=== PATIENT | female | born 1940 | race Caucasian/White ===

== ENCOUNTER → 2016-04-26 | Outpatient (CLI) | payer MEDICARE ==
[~2016-04-26] MED LIST: ARICEPT5 M1 PO; AUGMENTIN 875 M1 TA1 PO; ECOTRIN81 M1 PO; Ecotrin325 MG PO; FISH OIL 500MG500 MG PO; LIPITOR40 MG PO; METOPROLOL SUCC25 M2 PO; MOTRIN600 MG PO; PLAVIX75 MG PO; SKELAXIN800 MG PO; TOPROL XL25 MG PO; ULTRAM50 MG PO; Zofran4 MG PO; [UNRECOGNIZED DRUG - REMARK] PO
== END | disposition home or self-care (01) ==
LOC: CARD 12:50
DX: I34.0 Nonrheumatic mitral (valve) insufficiency (principal); I07.1 Rheumatic tricuspid insufficiency; R07.2 Precordial pain; R53.83 Other fatigue

== ENCOUNTER → 2016-07-12 | Outpatient (CLI) | payer MEDICARE | END | disposition home or self-care (01) | LOC: RAD 14:32 | DX: J98.4 Other disorders of lung (principal); R06.02 Shortness of breath; R05 Cough; R06.2 Wheezing; R09.89 Other specified symptoms and signs involving the circulatory and respiratory systems; Z87.891 Personal history of nicotine dependence ==

== ENCOUNTER → 2016-10-05 | Outpatient (CLI) | payer MEDICARE | LOC: US 01:46 | DX: I65.23 Occlusion and stenosis of bilateral carotid arteries (principal); I25.10 Atherosclerotic heart disease of native coronary artery without angina pectoris ==

== ENCOUNTER → 2016-11-22 | Outpatient (CLI) | payer MEDICARE ==
[2016-11-22 11:54] LABS: BASO # 0.1 10*3/uL (0.0-0.1); EOS # 0.2 10*3/uL (0.0-0.4); HEMATOCRIT 39.3 % (37.0-47.0); LYMPH # 1.8 10*3/uL (1.3-4.4); LYMPH % 31.1 % (27.0-41.0); MEAN CELL VOLUME 93.3 fl (81.0-99.0); MEAN CORPUSCULAR HGB 30.9 pg (27.0-31.0); MEAN CORPUSCULAR HGB CONC 33.1 g/dl (33.0-37.0); MEAN PLATELET VOLUME 9.8 fl (9.6-12.3); MONO # 0.5 10*3/uL (0.1-1.0); MONO % 8.8 % (3.0-9.0); NEUT # 3.3 10*3/uL (2.3-7.9); NEUT % 55.8 % (47.0-73.0); PLATELET COUNT AUTOMATED 188 10*3/uL (130-400); RED BLOOD COUNT 4.21 10*6/uL (4.10-5.10); RED CELL DISTRI WIDTH 12.9 % (0-14.5); WHITE BLOOD COUNT 5.9 10*3/uL (4.8-10.8)
[2016-11-22 12:26] LABS: ALBUMIN 3.7 gm/dl (3.1-4.5); ALKALINE PHOSPHATASE 83 U/L (45-117); BILIRUBIN, TOTAL 0.5 mg/dl (0.2-1.0); BUN 16 mg/dl (7-24); CARBON DIOXIDE 28 mmol/L (21-32); CHLORIDE 107 mmol/L (98-107); EST GLOM FILT AFRICAN AMERICAN > 60 ml/min; GLUCOSE 80 mg/dL (65-99); POTASSIUM 4.3 mmol/L (3.5-5.1); SGOT/AST 19 IU/L (3-35); SGPT/ALT 22 U/L (12-78); SODIUM 140 mmol/L (136-145); TOTAL PROTEIN 6.5 gm/dL (6.4-8.2)
== END | disposition home or self-care (01) ==
LOC: LAB 10:51 → CT 11:00
PROVIDERS: Internal Medicine
DX: R55 Syncope and collapse (principal); R41.3 Other amnesia

== ENCOUNTER 2017-01-01 15:53 | Emergency (ER) | payer MEDICARE ==
[~2017-01-01] VITALS: Wt 55.8 kg
[2017-01-01 15:58] VITALS: BP 147/86
[2017-01-01] MEDS ORDERED: AUGMENTIN 875875 MG PO (16:31)
== END 2017-01-01 16:29 | disposition home or self-care (01) ==
LOC: ED 15:53
DX: S61.451A Open bite of right hand, initial encounter (principal); W55.01XA Bitten by cat, initial encounter; Z79.899 Other long term (current) drug therapy; Z79.82 Long term (current) use of aspirin; Z90.49 Acquired absence of other specified parts of digestive tract; Z90.710 Acquired absence of both cervix and uterus; Z88.2 Allergy status to sulfonamides; Z88.5 Allergy status to narcotic agent

== ENCOUNTER → 2017-07-11 | Outpatient (CLI) | payer MEDICARE ==
[~2017-07-11] MED LIST changes: +AUGMENTIN 875875 MG PO
== END | disposition home or self-care (01) ==
LOC: US 10:32
DX: I65.23 Occlusion and stenosis of bilateral carotid arteries (principal)

== ENCOUNTER 2019-04-30 11:43 | Inpatient (IN) | payer MEDICARE ==
[~2019-04-30] VITALS: Ht 154.9 cm; Wt 56.5 kg
--- NOTE | 2019-04-30 12:00 | NUR ---
DR NAIK MADE AWARE OF DIZZINESS THAT STARTED AFTER SHE AWOKE THIS MORNING STATES THAT SHE WAS LAYING IN BED WHEN THE DIZZINESS STARTED. PATIENT STATES THAT SHE FELT NAUSEATED WELL.
--- NOTE | 2019-04-30 12:05 | NUR ---
UPON ENTERING PT'S ROOM PT STATES "THE ROOM IS SPINNING SO FAST, YOU ARE SPINNING" RAPID UNCONTROLLED EYE MOVEMENT NOTED AT THIS TIME. DR NAIK NOTIFIED. BRAIN ATTACK CODE CALLED.
[2019-04-30 12:14] LABS: BASO # 0.1 10*3/uL (0.0-0.1); BASO % 1.3 % (0.0-1.0); EOS # 0.1 10*3/uL (0.0-0.4); HEMOGLOBIN 13.5 g/dl (12.0-16.0); LYMPH # 1.5 10*3/uL (1.3-4.4); LYMPH % 30.9 % (27.0-41.0); MEAN CELL VOLUME 93.8 fl (81.0-99.0); MEAN CORPUSCULAR HGB 30.9 pg (27.0-31.0); MEAN CORPUSCULAR HGB CONC 32.9 g/dl (33.0-37.0); MEAN PLATELET VOLUME 10.1 fl (9.6-12.3); MONO # 0.3 10*3/uL (0.1-1.0); MONO % 6.8 % (3.0-9.0); NEUT # 2.7 10*3/uL (2.3-7.9); NEUT % 57.8 % (47.0-73.0); PLATELET COUNT AUTOMATED 193 10*3/uL (130-400); RED BLOOD COUNT 4.37 10*6/uL (4.10-5.10); RED CELL DISTRI WIDTH 12.7 % (0-14.5); WHITE BLOOD COUNT 4.7 10*3/uL (4.8-10.8)
[2019-04-30 12:18] VITALS: BP 115/98
[2019-04-30 12:25] LABS: ACT PARTIAL THROMBO TIME 25.8 SECONDS (20.0-32.1)
[2019-04-30 12:29] LABS: LIPASE 165 U/L (73-393)
[2019-04-30 12:30] LABS: ALBUMIN 3.6 gm/dl (3.1-4.5); ALKALINE PHOSPHATASE 88 U/L (45-117); BUN 16 mg/dl (7-24); CHLORIDE 109 mmol/L (98-107); CREATININE 0.96 mg/dL (0.55-1.02); POTASSIUM 3.7 mmol/L (3.5-5.1); SGPT/ALT 18 U/L (12-78); SODIUM 140 mmol/L (136-145); TOTAL PROTEIN 6.7 gm/dL (6.4-8.2)
[2019-04-30 12:38] LABS: SGOT/AST 17 IU/L (3-35); TROPONIN I < 0.015 ng/ml (<0.045)
[2019-04-30 13:00] VITALS: BP 157/63
[2019-04-30 14:00] VITALS: BP 130/67
[2019-04-30 15:00] VITALS: BP 138/60
[2019-04-30 16:00] VITALS: BP 129/63
--- NOTE | 2019-04-30 17:08 | NUR ---
A 79, admitted to , under the services of JANNET Rosado DO with a diagnosis of N/V. Chief complaint is N/V. [place] Monitor applied. Initial assessment completed. Vital signs taken and recorded. JANNET ROSADO DO notified of admission to the unit. Orders received. See assessment for past medical history, medications and allergies. Patient and/or family oriented to unit. [facility] visitation policy reviewed. Clothing/patient valuable form completed. DWIGHT FORBES
[2019-04-30] MEDS ORDERED: ASPIRIN81 M1 PO (17:23)
[2019-04-30] MEDS ORDERED: CITALOPRAM20 MG PO (17:23)
[2019-04-30] MEDS ORDERED: VITAMIN B121000 MC1 PO (17:24)
[2019-04-30] MEDS ORDERED: VITAMIN D32000 UNI1 PO (17:24)
[2019-04-30] MEDS ORDERED: METOPROLOL SUCC25 M2 PO (17:26)
--- NOTE | 2019-04-30 19:23 | NUR ---
dr latham notified of critical troponin
--- NOTE | 2019-04-30 19:36 | NUR ---
'S ANSWERING SERVICE CALLED REGARDING CONSULT. INFORMATION, INCLUDING CALL BACK NUMBER, LEFT WITH ANSWERING SERVICE.
[2019-04-30 20:00] VITALS: BP 179/60
--- NOTE | 2019-04-30 21:11 | NUR ---
NOTIFIED OF TROPONIN 0.063, UP FROM 0.057. NO NEW ORDERS RECEIVED.
--- NOTE | 2019-04-30 22:39 | NUR ---
PATIENT UP TO [facility] PER AIDE. MISSED HAT. UNABLE TO SEND URINE SAMPLE. WILL ATTEMPT AT LATER POINT.
--- NOTE | 2019-04-30 23:17 | NUR ---
'S ANSWERING SERVICE CALLED REGARDING CONSULT. INFORMATION, INCLUDING CALL BACK NUMBER, LEFT WITH ANSWERING SERVICE.
[2019-05-01] VITALS: BP 122/44
--- NOTE | 2019-05-01 04:57 | NUR ---
PER LAB 0250 TROPONIN JUST POPPED UP FOR THEM TO DRAW. RN INSTRUCTED LAB TO GET TROPONIN WITH AM LAB DRAWS.
[2019-05-01 06:04] LABS: BUN 14 mg/dl (7-24); CHLORIDE 114 mmol/L (98-107); CREATININE 0.87 mg/dL (0.55-1.02); PHOSPHOROUS 3.3 mg/dL (2.5-4.9); POTASSIUM 3.5 mmol/L (3.5-5.1); SODIUM 142 mmol/L (136-145)
[2019-05-01 06:06] LABS: BASO # 0.1 10*3/uL (0.0-0.1); EOS # 0.2 10*3/uL (0.0-0.4); EOS % 3.5 % (1.0-4.0); HEMATOCRIT 35.7 % (37.0-47.0); HEMOGLOBIN 11.5 g/dl (12.0-16.0); LYMPH # 1.9 10*3/uL (1.3-4.4); MEAN CELL VOLUME 94.7 fl (81.0-99.0); MEAN CORPUSCULAR HGB 30.5 pg (27.0-31.0); MEAN CORPUSCULAR HGB CONC 32.2 g/dl (33.0-37.0); MEAN PLATELET VOLUME 10.3 fl (9.6-12.3); MONO # 0.4 10*3/uL (0.1-1.0); MONO % 7.6 % (3.0-9.0); NEUT # 2.6 10*3/uL (2.3-7.9); NEUT % 50.7 % (47.0-73.0); PLATELET COUNT AUTOMATED 162 10*3/uL (130-400); RED BLOOD COUNT 3.77 10*6/uL (4.10-5.10); RED CELL DISTRI WIDTH 12.7 % (0-14.5); WHITE BLOOD COUNT 5.1 10*3/uL (4.8-10.8)
[2019-05-01 08:00] VITALS: BP 130/46
--- NOTE | 2019-05-01 09:00 | NUR ---
Eligibility Manager in to talk to patient. Patient states lives at home with alone. There are no steps in the home. Physician: barron june Pharmacy: [facility] Home health services: none Patient's level of ADLs: INDEPENDENT Patient has working utilities: all working DME: none Follow-up physician's appointment after d/c: will be made by hospitalist nurse director upon discharge Does patient want to access PORTAL?: no Discharge plan discussed with patient, she lives at home alone is independent in adls and ambualation she states she will return home when medically stable and denies any home needs, case management will follow. SAMANTHA OWEN
--- NOTE | 2019-05-01 10:26 | NUR ---
INFORMED SIGNED CONSENT OBTAINED FOR LEXISCAN STRESS TEST WITH DR LEW. RESTING EKG SINUS BRADYCARDIA WITH PVC HR 47, T WAVE INVERSION AVL, V1-V3. PT COMPLETED ONE MINUTE OF A LEXISCAN PROTOCOL WITH PT RECEIVING LEXISCAN 0.4MG IV OVER 10 SECONDS. PT C/O NAUSEA WITH INJECTION. NO ARRYTHMIAS OR ST CHANGES NOTED. LAST RECOVERY HR OF 82 BP 134/80. PT IN STABLE CONDITION, AWAITING NUCLEAR IMAGES.
[2019-05-01 16:00] VITALS: BP 139/52
[2019-05-01 16:25] LABS: CLARITY CLEAR (CLEAR); COLOR YELLOW (YELLOW)
[2019-05-01 16:26] LABS: BILIRUBIN NEGATIVE (NEGATIVE); BLOOD 2+ (NEGATIVE); GLUCOSE NEGATIVE (NEGATIVE); KETONE NEGATIVE (NEGATIVE); LEUKO ESTERASE NEGATIVE (NEGATIVE); NITRITE NEGATIVE (NEGATIVE); UROBILINOGEN 0.2 E.U./dl (0.2-1.0)
[2019-05-01 16:27] LABS: BACTERIA 1+; WBC 0-2 wbc/hpf (0-5)
--- NOTE | 2019-05-01 17:48 | NUR ---
Discharge instructions reviewed with patient/family. Patient receptive and verbalizes understanding. Follow-up care arranged. Written instructions given to patient/family. SOLEDAD GASTON
--- NOTE | 2019-05-02 09:03 | NUR ---
Faxed home health referral to [facility]
--- NOTE | 2019-05-06 15:01 | NUR ---
Received call from Randi from [facility]. She is unable to admit patient as she is not home bound.
== END 2019-05-01 17:48 | disposition home or self-care (01) | DRG 641 ==
LOC: ED 11:43 → EDHOLD 14:45 → 4E 14:45
PROVIDERS: Emergency Medicine; Student in an Organized Health Care Education/Training Program; ADMIT Internal Medicine
PROC: 3E073KZ Introduction of Other Diagnostic Substance into Coronary Artery, Percutaneous Approach (ICD-10-PCS; principal; 2019-05-01)
PROC: 4A02XM4 Measurement of Cardiac Total Activity, External Approach (ICD-10-PCS; principal; 2019-05-01)
DX: E86.0 Dehydration (principal); R11.2 Nausea with vomiting, unspecified; E87.8 Other disorders of electrolyte and fluid balance, not elsewhere classified; R00.1 Bradycardia, unspecified; R73.9 Hyperglycemia, unspecified; I12.9 Hypertensive chronic kidney disease with stage 1 through stage 4 chronic kidney disease, or unspecified chronic kidney disease; N18.3 Chronic kidney disease, stage 3 (moderate); I25.10 Atherosclerotic heart disease of native coronary artery without angina pectoris; E78.5 Hyperlipidemia, unspecified; F03.90 Unspecified dementia, unspecified severity, without behavioral disturbance, psychotic disturbance, mood disturbance, and anxiety; E55.9 Vitamin D deficiency, unspecified; E53.9 Vitamin B deficiency, unspecified; Z95.1 Presence of aortocoronary bypass graft; Z90.49 Acquired absence of other specified parts of digestive tract; Z98.51 Tubal ligation status; Z87.891 Personal history of nicotine dependence; Z82.49 Family history of ischemic heart disease and other diseases of the circulatory system; Z88.2 Allergy status to sulfonamides; Z88.8 Allergy status to other drugs, medicaments and biological substances; Z79.82 Long term (current) use of aspirin; Z79.899 Other long term (current) drug therapy

== ENCOUNTER → 2019-10-22 | Outpatient (CLI) | payer MEDICARE ==
[~2019-10-22] MED LIST changes: +ASPIRIN81 M1 PO; +CITALOPRAM20 MG PO; +VITAMIN B121000 MC1 PO; +VITAMIN D32000 UNI1 PO
== END | disposition home or self-care (01) ==
LOC: LAB 12:00
DX: R19.7 Diarrhea, unspecified (principal)

== ENCOUNTER → 2019-10-23 | Outpatient (CLI) | payer MEDICARE | END | disposition home or self-care (01) | LOC: LAB 13:33 | DX: R19.7 Diarrhea, unspecified (principal) ==

== ENCOUNTER → 2019-10-25 | Outpatient (CLI) | payer MEDICARE | END | disposition home or self-care (01) | LOC: LAB 11:47 | DX: R19.7 Diarrhea, unspecified (principal) ==

== ENCOUNTER 2020-10-27 14:01 | Inpatient (IN) | payer MEDICARE ==
[~2020-10-27] VITALS: Ht 154.9 cm; Wt 55.1 kg
[2020-10-27 14:12] VITALS: BP 170/80
[2020-10-27 14:46] LABS: BASO # 0.1 10*3/uL (0.0-0.1); BASO % 0.8 % (0.0-1.0); EOS # 0.3 10*3/uL (0.0-0.4); EOS % 3.6 % (1.0-4.0); HEMATOCRIT 41.1 % (37.0-47.0); LYMPH # 1.3 10*3/uL (1.3-4.4); LYMPH % 16.7 % (27.0-41.0); MEAN CELL VOLUME 91.7 fl (81.0-99.0); MEAN CORPUSCULAR HGB 29.9 pg (27.0-31.0); MEAN CORPUSCULAR HGB CONC 32.6 g/dl (33.0-37.0); MEAN PLATELET VOLUME 9.5 fl (9.6-12.3); MONO # 0.8 10*3/uL (0.1-1.0); MONO % 10.1 % (3.0-9.0); NEUT # 5.2 10*3/uL (2.3-7.9); NEUT % 67.9 % (47.0-73.0); PLATELET COUNT AUTOMATED 194 10*3/uL (130-400); RED BLOOD COUNT 4.48 10*6/uL (4.10-5.10); RED CELL DISTRI WIDTH 13.2 % (0-14.5); WHITE BLOOD COUNT 7.6 10*3/uL (4.8-10.8)
[2020-10-27 15:02] LABS: ALBUMIN 3.4 gm/dl (3.1-4.5); ALKALINE PHOSPHATASE 96 U/L (45-117); BUN 12 mg/dl (7-24); CHLORIDE 106 mmol/L (98-107); CREATININE 0.94 mg/dL (0.55-1.02); LIPASE 211 U/L (73-393); POTASSIUM 4.1 mmol/L (3.5-5.1); SGOT/AST 12 IU/L (3-35); SGPT/ALT 17 U/L (12-78); SODIUM 136 mmol/L (136-145); TOTAL PROTEIN 6.6 gm/dL (6.4-8.2)
[2020-10-27 15:11] LABS: TROPONIN I < 0.015 ng/ml (<0.045)
[2020-10-27 15:40] VITALS: BP 162/84
[2020-10-27 16:38] VITALS: BP 158/81
[2020-10-27 19:21] LABS: BILIRUBIN Negative (Negative); BLOOD Negative (Negative); CLARITY Clear (Clear); COLOR Yellow (Yellow); GLUCOSE Negative (Negative); KETONE Negative (Negative); LEUKO ESTERASE Trace (Negative); NITRITE Negative (Negative); PH 7.5 (4.5-8.0); SPECIFIC GRAVITY <= 1.005 (1.001-1.030); UROBILINOGEN 0.2 E.U./dl (0.0-1.0)
[2020-10-27 19:37] LABS: RBC 0-2 rbc/hpf (0-2)
[2020-10-27 19:39] VITALS: BP 175/50
[2020-10-27 20:00] VITALS: BP 199/64
[2020-10-27 21:35] VITALS: BP 150/70
[2020-10-28] VITALS: BP 163/48
[2020-10-28 08:00] VITALS: BP 145/44
[2020-10-28 12:00] VITALS: BP 144/47
[2020-10-28 16:00] VITALS: BP 117/45
[2020-10-28 20:00] VITALS: BP 125/47
[2020-10-29] MEDS ORDERED: APRESOLINE25 MG PO (04:36)
[2020-10-29 08:00] VITALS: BP 139/43
== END 2020-10-29 10:05 | disposition home or self-care (01) | DRG 303 ==
LOC: ED 14:01 → 4E 16:56 → EDHOLD 16:56 → 4E 17:44
PROVIDERS: Emergency Medicine; ADMIT Internal Medicine; ATTEND Internal Medicine
DX: I99.8 Other disorder of circulatory system (principal); I38 Endocarditis, valve unspecified; I35.0 Nonrheumatic aortic (valve) stenosis; I07.1 Rheumatic tricuspid insufficiency; I34.0 Nonrheumatic mitral (valve) insufficiency; I10 Essential (primary) hypertension; G30.9 Alzheimer's disease, unspecified; R29.6 Repeated falls; R62.7 Adult failure to thrive; F02.80 Dementia in other diseases classified elsewhere, unspecified severity, without behavioral disturbance, psychotic disturbance, mood disturbance, and anxiety; I25.10 Atherosclerotic heart disease of native coronary artery without angina pectoris; Z95.1 Presence of aortocoronary bypass graft; S00.83XA Contusion of other part of head, initial encounter; W18.39XA Other fall on same level, initial encounter; Y93.89 Activity, other specified; Y92.89 Other specified places as the place of occurrence of the external cause; Y99.8 Other external cause status; Z90.49 Acquired absence of other specified parts of digestive tract; Z98.51 Tubal ligation status; Z95.5 Presence of coronary angioplasty implant and graft; Z90.710 Acquired absence of both cervix and uterus; Z68.22 Body mass index [BMI] 22.0-22.9, adult; R00.1 Bradycardia, unspecified

== ENCOUNTER 2021-03-07 10:53 | Emergency (ER) | payer MEDICARE ==
[~2021-03-07] VITALS: Wt 52.2 kg
[~2021-03-07 10:53] MED LIST changes: +APRESOLINE25 MG PO
[2021-03-07 10:54] VITALS: BP 142/73
[2021-03-07] MEDS ORDERED: HYDROCODONE-AC1 EAC1 PO (14:11)
== END 2021-03-07 14:56 | disposition home or self-care (01) ==
LOC: ED 10:53
DX: S22.41XA Multiple fractures of ribs, right side, initial encounter for closed fracture (principal); S27.321A Contusion of lung, unilateral, initial encounter; Z88.2 Allergy status to sulfonamides; Z88.8 Allergy status to other drugs, medicaments and biological substances; Z79.899 Other long term (current) drug therapy; Z79.82 Long term (current) use of aspirin; Z87.891 Personal history of nicotine dependence; W18.39XA Other fall on same level, initial encounter; Y93.89 Activity, other specified; Y92.89 Other specified places as the place of occurrence of the external cause; Y99.8 Other external cause status

== ENCOUNTER 2022-03-09 13:39 | Emergency (ER) | payer MEDICARE ==
[~2022-03-09] VITALS: Ht 152.4 cm; Wt 54.4 kg
[~2022-03-09 13:39] MED LIST changes: +CARAFATE1 GM PO; +HYDROCODONE-AC1 EAC1 PO; +MEMANTINE HCL5 MG PO; +NORVASC5 MG PO; +PROTONIX40 MG PO; +RIVASTIGMINE TAR6 M1 PO
[2022-03-09 14:05] VITALS: BP 136/78
[2022-03-09 14:47] LABS: BASO % 0.6 % (0.0-1.0); EOS # 0.1 10*3/uL (0.0-0.4); EOS % 1.2 % (1.0-4.0); HEMATOCRIT 38.8 % (37.0-47.0); LYMPH # 0.8 10*3/uL (1.3-4.4); LYMPH % 15.3 % (27.0-41.0); MEAN CELL VOLUME 88.6 fl (81.0-99.0); MEAN CORPUSCULAR HGB 30.4 pg (27.0-31.0); MEAN CORPUSCULAR HGB CONC 34.3 g/dl (33.0-37.0); MEAN PLATELET VOLUME 9.7 fl (9.6-12.3); MONO # 0.3 10*3/uL (0.1-1.0); MONO % 5.5 % (3.0-9.0); NEUT # 3.9 10*3/uL (2.3-7.9); NEUT % 77.2 % (47.0-73.0); PLATELET COUNT AUTOMATED 202 10*3/uL (130-400); RED BLOOD COUNT 4.38 10*6/uL (4.10-5.10); RED CELL DISTRI WIDTH 13.4 % (0-14.5); WHITE BLOOD COUNT 5.1 10*3/uL (4.8-10.8)
[2022-03-09 14:59] LABS: ACT PARTIAL THROMBO TIME 25.6 SECONDS (20.0-32.1)
[2022-03-09 15:02] LABS: ALKALINE PHOSPHATASE 90 U/L (46-116); BUN 11 mg/dl (9-23); CHLORIDE 104 mmol/L (98-107); POTASSIUM 3.2 mmol/L (3.4-5.1); SODIUM 138 mmol/L (136-145)
[2022-03-09 15:03] LABS: TOTAL PROTEIN 6.3 gm/dL (6.0-8.0)
[2022-03-09 15:04] LABS: SGPT/ALT < 7 U/L (10-49)
== END 2022-03-09 16:21 | disposition home or self-care (01) ==
LOC: ED 13:39
PROVIDERS: Emergency Medicine
DX: S02.2XXA Fracture of nasal bones, initial encounter for closed fracture (principal); S00.81XA Abrasion of other part of head, initial encounter; E87.6 Hypokalemia; I25.10 Atherosclerotic heart disease of native coronary artery without angina pectoris; E78.5 Hyperlipidemia, unspecified; I12.9 Hypertensive chronic kidney disease with stage 1 through stage 4 chronic kidney disease, or unspecified chronic kidney disease; N18.30 Chronic kidney disease, stage 3 unspecified; Z88.2 Allergy status to sulfonamides; Z88.8 Allergy status to other drugs, medicaments and biological substances; Z79.899 Other long term (current) drug therapy; Z98.51 Tubal ligation status; Z90.49 Acquired absence of other specified parts of digestive tract; Z87.891 Personal history of nicotine dependence; W18.39XA Other fall on same level, initial encounter; Y93.89 Activity, other specified; Y92.89 Other specified places as the place of occurrence of the external cause; Y99.8 Other external cause status

== ENCOUNTER → 2022-06-01 | Outpatient (CLI) | payer MEDICARE ==
[2022-06-01 10:15] LABS: BASO # 0.1 10*3/uL (0.0-0.1); BASO % 1.9 % (0.0-1.0); EOS # 0.2 10*3/uL (0.0-0.4); EOS % 3.5 % (1.0-4.0); HEMATOCRIT 39.5 % (37.0-47.0); LYMPH % 23.9 % (27.0-41.0); MEAN CELL VOLUME 93.4 fl (81.0-99.0); MEAN CORPUSCULAR HGB CONC 32.2 g/dl (33.0-37.0); MEAN PLATELET VOLUME 9.7 fl (9.6-12.3); MONO # 0.5 10*3/uL (0.1-1.0); MONO % 11.3 % (3.0-9.0); NEUT # 2.5 10*3/uL (2.3-7.9); NEUT % 58.9 % (47.0-73.0); PLATELET COUNT AUTOMATED 199 10*3/uL (130-400); RED BLOOD COUNT 4.23 10*6/uL (4.10-5.10); RED CELL DISTRI WIDTH 13.2 % (0-14.5); WHITE BLOOD COUNT 4.2 10*3/uL (4.8-10.8)
[2022-06-01 10:34] LABS: ALKALINE PHOSPHATASE 101 U/L (46-116); BUN 12 mg/dl (9-23); CHLORIDE 103 mmol/L (98-107); CHOLESTEROL 197 mg/dL (<200); FREE T4 1.15 ng/dl (0.89-1.76); LDL CHOLESTEROL 114 mg/dL (9-159); SGPT/ALT 13 U/L (10-49); THYROID STIM HORMONE (HS) 2.638 uIU/ml (0.550-4.780); TOTAL PROTEIN 6.3 gm/dL (6.0-8.0); TRIGLYCERIDES 100 mg/dl (<150)
[2022-06-01 10:37] LABS: VITAMIN D, 25-HYDROXY 37.8 ng/mL (30-100)
== END | disposition home or self-care (01) ==
LOC: RAD 00:58
PROVIDERS: ATTEND Internal Medicine
DX: M81.0 Age-related osteoporosis without current pathological fracture (principal); I10 Essential (primary) hypertension; E55.9 Vitamin D deficiency, unspecified; I95.9 Hypotension, unspecified; Z13.89 Encounter for screening for other disorder; Z13.820 Encounter for screening for osteoporosis; Z13.1 Encounter for screening for diabetes mellitus; Z13.6 Encounter for screening for cardiovascular disorders; Z13.0 Encounter for screening for diseases of the blood and blood-forming organs and certain disorders involving the immune mechanism; Z13.21 Encounter for screening for nutritional disorder; Z13.220 Encounter for screening for lipoid disorders; Z13.228 Encounter for screening for other metabolic disorders; Z13.9 Encounter for screening, unspecified

== ENCOUNTER 2022-11-05 22:54 | Emergency (ER) | payer MEDICARE ==
[~2022-11-05] VITALS: Ht 162.5 cm; Wt 54.9 kg
[2022-11-05 23:15] VITALS: BP 163/64
[2022-11-06] MEDS ORDERED: CEPHALEXIN500 M1 PO (00:35)
== END 2022-11-06 00:38 | disposition home or self-care (01) ==
LOC: ED 22:54
DX: L03.115 Cellulitis of right lower limb (principal); I10 Essential (primary) hypertension; I25.10 Atherosclerotic heart disease of native coronary artery without angina pectoris; E78.00 Pure hypercholesterolemia, unspecified; F03.90 Unspecified dementia, unspecified severity, without behavioral disturbance, psychotic disturbance, mood disturbance, and anxiety; Z88.2 Allergy status to sulfonamides; Z88.8 Allergy status to other drugs, medicaments and biological substances; Z90.49 Acquired absence of other specified parts of digestive tract; Z98.51 Tubal ligation status; Z98.890 Other specified postprocedural states; Z90.710 Acquired absence of both cervix and uterus; Z87.891 Personal history of nicotine dependence

== ENCOUNTER 2023-09-24 04:50 | Emergency (ER) | payer MEDICARE ==
[~2023-09-24] VITALS: Ht 154.9 cm; Wt 46.7 kg
[~2023-09-24 04:50] MED LIST changes: +CEPHALEXIN500 M1 PO
[2023-09-24 04:51] VITALS: BP 143/64
[2023-09-24] MEDS ORDERED: ACETAMINOPHEN 325 MG TAB PO ONE (05:55)
== END 2023-09-24 06:18 | disposition home or self-care (01) ==
LOC: ED 04:50
DX: S40.012A Contusion of left shoulder, initial encounter (principal); S00.03XA Contusion of scalp, initial encounter; Z88.2 Allergy status to sulfonamides; Z88.8 Allergy status to other drugs, medicaments and biological substances; Z79.2 Long term (current) use of antibiotics; Z79.899 Other long term (current) drug therapy; Z90.49 Acquired absence of other specified parts of digestive tract; Z98.51 Tubal ligation status; Z95.5 Presence of coronary angioplasty implant and graft; Z87.891 Personal history of nicotine dependence; W18.39XA Other fall on same level, initial encounter; Y93.89 Activity, other specified; Y92.89 Other specified places as the place of occurrence of the external cause; Y99.8 Other external cause status

== ENCOUNTER → 2024-01-30 | Outpatient (CLI) | payer MEDICARE ==
[2024-01-30 10:40] LABS: BASO # 0.1 10*3/uL (0.0-0.1); BASO % 1.6 % (0.0-1.0); EOS # 0.2 10*3/uL (0.0-0.4); EOS % 3.4 % (1.0-4.0); HEMATOCRIT 35.4 % (37.0-47.0); LYMPH # 1.1 10*3/uL (1.3-4.4); LYMPH % 22.5 % (27.0-41.0); MEAN CELL VOLUME 89.8 fl (81.0-99.0); MEAN CORPUSCULAR HGB 28.2 pg (27.0-31.0); MEAN CORPUSCULAR HGB CONC 31.4 g/dl (33.0-37.0); MONO # 0.4 10*3/uL (0.1-1.0); MONO % 8.5 % (3.0-9.0); NEUT # 3.2 10*3/uL (2.3-7.9); NEUT % 63.8 % (47.0-73.0); PLATELET COUNT AUTOMATED 231 10*3/uL (130-400); RED BLOOD COUNT 3.94 10*6/uL (4.10-5.10); RED CELL DISTRI WIDTH 14.3 % (0-14.5); WHITE BLOOD COUNT 5.1 10*3/uL (4.8-10.8)
[2024-01-30 11:15] LABS: FREE T4 1.02 ng/dl (0.89-1.76); POTASSIUM 3.9 mmol/L (3.4-5.1); TOTAL PROTEIN 6.6 gm/dL (6.0-8.0)
== END | disposition home or self-care (01) ==
LOC: LAB 10:15
PROVIDERS: ATTEND Internal Medicine
DX: I10 Essential (primary) hypertension (principal); E78.2 Mixed hyperlipidemia; I95.9 Hypotension, unspecified; K21.00 Gastro-esophageal reflux disease with esophagitis, without bleeding; E55.9 Vitamin D deficiency, unspecified; R53.83 Other fatigue; E53.9 Vitamin B deficiency, unspecified